=== PATIENT | male | born 1965 | race Caucasian/White ===

== ENCOUNTER 2017-04-24 15:21 | Inpatient (IN) ==
--- NOTE | 2017-04-24 17:07 | Emergency Department Note ---
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 He had been having trouble with palpation of the heart had a workup that was done. He had an echo done here yesterday. At the [facility] he went and had a Holter monitor put on and That on overnight last night. He turned it in this morning. When they read it they apparently saw ventricular tachycardia and frequent PVCs so they called him and told him to come back to the place. While there the plan was to admitted to the hospital on metoprolol. However labs came back showing an elevated troponin so they could not keep him there and had a transfer him here. Onset (ago): unknown Context: occurred during rest Associated symptoms: Reports: denies other symptoms Treatments prior to arrival: other (None) - Related Data Home Medications Medication Instructions Recorded Confirmed Cholecalciferol (D-3) [Vitamin D] 1,000 unit PO DAILY 04/24/17 04/24/17 Diclofenac Sodium [Voltaren] 50 mg PO TID PRN 04/24/17 04/24/17 Lisinopril [Zestril] 10 mg PO DAILY 04/24/17 04/24/17 Sildenafil Citrate [Viagra] 100 mg PO AD PRN 04/24/17 04/24/17 Allergies Allergy/AdvReac Type Severity Reaction Status Date / Time No Known Allergies Allergy Unverified 12/29/16 11:06 All systems ED: reviewed and negative except as stated. Constitutional: Denies: fever, chills Cardiovascular: Reports: palpitations. Denies: chest pain Respiratory: Denies: cough, dyspnea Gastrointestinal: Denies: abdominal pain, nausea, vomiting Musculoskeletal: Denies: back pain Integumentary: Denies: rash Past Medical History - Past Medical History Attestation: Yes The following information was validated with the patient. Source: patient, old records reviewed, nursing notes reviewed Medical history: Reports: hypertension Psychiatric history: Reports: no psych history - Social History Smoking Status: Current every day smoker Smokeless Tobacco Status: No Alcohol use: Reports: heavy Drug use: Reports: marijuana Physical Exam - General Limitations: no limitations General appearance: alert, in no apparent distress - Head Head exam: atraumatic, normocephalic - Eye Eye exam: Present: normal appearance, PERRL, EOMI - ENT ENT exam: normal exam, normal oropharynx, mucous membranes moist, normal external ear exam - Chest Chest inspection: Present: normal inspection, symmetric chest wall rise - Respiratory Respiratory exam: Absent: respiratory distress - Cardiovascular Cardiovascular exam: Present: regular rate, normal rhythm - Abdominal Exam Abdominal exam: Present: soft, Non-Tender - Extremities Exam Extremities exam: Present: normal inspection. Absent: pedal edema - Neurological Exam Neurological exam: Present: alert, oriented X3 - Psychiatric Psychiatric exam: Present: normal affect, normal mood - Skin Skin exam: Present: warm, dry. Absent: rash Course - Reevaluation(s) Reevaluation #1: Patient was sent to the emergency department for a Holter monitor that showed V. tach and frequent PVCs. The patient has been asymptomatic except for noting some palpitations. Here in the department he has been fine although on the monitor we did see and episode of ventricular bigeminy. At the current time he has got sinus rhythm with an occasional PAC. Patient states he has sleep apnea and thinks this may be the cause. The bigeminy did occur while he was sleeping. I called the family physician and discussed the case with her. There is some confusion as to who did the Holter monitor and what does it show so she felt the best thing to do is admit the patient to the hospital on metoprolol by mouth twice a day until these Holter findings can be sorted out. Time: 17:56 Reevaluation #2: Patient remains asymptomatic at this time. Current monitor shows sinus rhythm with an occasional PAC. Time: 18:16 - Consultations Consultation #1: Dr. Malloy, cardiology - I discussed the case with Dr. Malloy. We do not really know who called the patient to say that he had the V. tach and frequent PVCs. She could not find any evidence that her office had called. At this point in emergency Department we have seen the patient with trigger PVCs and occasionally ventricular bigeminy. She feels the safest thing to do is admit the patient until everything can be sorted out. She cannot even find the actual Holter monitor reading. She recommends metoprolol 25 mg now and and continue that twice a day and admission to the hospitalist. Time: 17:07 Consultation #2: Dr. Liz, hospitalist - I discussed the case with the hospitalist and let him know the patient's current status as well as the presentation and my conversation with the family physician. He has accepted the patient for admission. Time: 18:15 Vital Signs Temperature 98.3 F 04/24/17 15:49 Pulse Rate 69 04/24/17 15:49 Respiratory Rate 18 04/24/17 15:49 Blood Pressure 130/72 04/24/17 15:49 O2 Sat by Pulse Oximetry 96 04/24/17 15:49 Temperature 98.3 F 04/24/17 15:49 Pulse Rate 60 04/24/17 18:11 Respiratory Rate 18 04/24/17 18:11 Blood Pressure 138/84 04/24/17 18:11 O2 Sat by Pulse Oximetry 95 04/24/17 18:11 Oxygen Delivery Oxygen Delivery Room Air Arrhythmia/Palpitations - Medical Records Medical records reviewed: Yes I reviewed the patient's medical records. - Radiology Data Radiology results reviewed: Yes I reviewed the patient's radiology results. - EKG Data EKG attestation: Yes I reviewed and interpreted this EKG. EKG shows normal: sinus rhythm, axis, intervals, QRS complexes, ST-T waves Rate: normal Interpretation: no acute changes
[2017-04-24 18:26] LABS: Basophils # 0.1 K/mcL (0.0-0.2); Basophils % 0.7 %; Eosinophils # 0.1 K/mcL (0.0-0.6); Eosinophils % 1.9 %; Hematocrit 45.5 % (37.5-50.1); Hemoglobin 15.4 g/dL (12.9-16.9); Immature Granulocytes % 1.1 % (0-4); Lymphocytes # 1.9 K/mcL (0.6-4.6); Lymphocytes % 25.9 %; Mean Corpuscular HGB Conc 33.8 g/dL (31.6-35.5); Mean Corpuscular Hemoglobin 30.4 pg (28.0-33.3); Mean Corpuscular Volume 89.9 fL (83.0-100.0); Monocytes # 0.6 K/mcL (0.0-1.3); Monocytes % 8.4 %; Neutrophils # 4.6 K/mcL (1.6-8.9); Platelet Count 199 K/mcL (140-400); Red Blood Count 5.06 M/mcL (4.19-5.50); Red Cell Distribution Width 12.9 % (11.5-14.5)
[2017-04-24 18:32] LABS: Prothrombin Time 11.1 Seconds (9.4-12.1)
[2017-04-24 18:35] LABS: Activated Partial Thrombo Time 31.4 Seconds (26.0-36.0)
[2017-04-24 18:38] LABS: BUN/Creatinine Ratio 15 (6-26); Blood Urea Nitrogen 13 mg/dL (8-26); Calcium 8.9 mg/dL (8.6-10.8); Carbon Dioxide 25 mEq/L (19-29); Chloride 106 mEq/L (98-109); Glucose 99 mg/dL (70-99); Osmolality,Calculated 286 (280-300); Potassium 4.4 mEq/L (3.5-4.5); Sodium 138 mEq/L (136-145); eGFR For African Americans > 60 (> 60); eGFR For Non-African Americans > 60 (> 60)
[2017-04-24] MEDS ORDERED: *HR* HYDROcodone/Acet 5/325 mg TABLET PO PRN (18:56)
[2017-04-24] MEDS ORDERED: *HR* Morphine 2 MG/ML SYRINGE IVP PRN (18:56)
[2017-04-24] MEDS ORDERED: Naloxone 0.4 MG/ML INJ IVP PRN (18:56)
[2017-04-24] MEDS ORDERED: Acetaminophen 325 MG TABLET PO PRN (18:56)
--- NOTE | 2017-04-24 19:12 | Internal Med History&Physical ---
<Darius Mcdermott - Last Filed: 04/24/17 20:11> Date of Encounter: 04/24/17 Time of Encounter: 18:30 Assessment and Plan (1) Elevated troponin Current visit: Yes Status: Acute Patient presents with abnormal initial troponin level from the [facility] today. First troponin level in ED here is 0.03. Will trend troponins x2. Patient to be placed on continuous cardiac telemetry. Aspirin 81 mg daily added. Lipitor 40 mg daily added based on stat lipid panel results. Patient states he is not having chest pain. Will monitor patient for signs of tachycardia, chest pain, or elevated troponin. Patient is followed by Dr. Alarcon. 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 Patient to be placed on continuous cardiac telemetry. Will continue patient's HTN medication. (3) Hyperlipidemia Current visit: Yes Status: Acute Patient presents with hyperlipidemia based on stat lipid panel ordered today. Patient's triglycerides are 411, cholesterol is 172, HDL is 31, and cholesterol/ HDL ratio is 5.5. Will add Lipitor 40 mg daily. Qualifiers: Hyperlipidemia type: pure hypercholesterolemia Qualified Code(s): E78.00 - Pure hypercholesterolemia, unspecified; E78.0 - Pure hypercholesterolemia (4) SOB (shortness of breath) Current visit: Yes Status: Chronic Patient presents with shortness of breath associated with his current tobacco abuse. On examination Mr. Heard has wheezing in lower lobes bilaterally, more pronounced in the right lobes. DuoNebs Q4 ordered with continuous SpO2 monitoring. Patient's current SpO2 is 96% on RA. Will order O2 if patient shows signs of dyspnea. (5) Tobacco abuse Current visit: Yes Status: Chronic Patient presents with history of tobacco abuse. He reports that he currently smokes 1 1/2 packs per day. 21 mg nicotine patch ordered. (6) Hypertension Current visit: Yes Status: Chronic Patient presents with history of chronic hypertension. Will continue patient's lisinopril. Monitor patient and vital signs. Qualifiers: Hypertension type: essential hypertension Qualified Code(s): I10 - Essential (primary) hypertension (7) DVT prophylaxis Current visit: Yes Status: Acute Patient is to be placed on DVT prophylaxis due to admission status and current symptomatology. Heparin 5,000 units SQ Q8 ordered. Internal Medicine - H&P: HPI Chief complaint: Elevated troponin Admitted From: Emergency Dept Plans for Post Hospital Care: Home History of present illness: Mr. Heard is a 51 year old male who presents from the ED after being sent from the [facility] for abnormal Holter results that showed tachycardia and PVCs. When he presented to the [facility], they report that his troponin was elevated. Mr. Heard states that he has occasional heart flutters. He also reports that he had an echocardiogram done yesterday at the recommendation of Dr. Alarcon which showed normal LV systolic function and LVEF of 60%, mild concentric left ventricular hypertrophy, and normal right ventricular size and function. Patient reports he also had a nuclear pharm stress test done in December 2016. Patient reports no chest pain or SOB aside from his normal shortness of breath due to smoking 1 1/ 2 packs per day. Patient also states he was previously a diabetic but stopped taking his Metformin when he changed his diet and began exercising. He currently takes no hyperglycemic medications. He reports his only medical condition is hypertension for which he takes lisinopril. Patient is at high risk for cardiac event due to current report of heart flutter, abnormal Holter results showing tachycardia and PVCs, previous diabetes, current tobacco abuse, hypertension, hyperlipidemia, heavy alcohol use, and morbid obesity. He is to be placed as inpatient with trending troponins x2, continuous cardiac telemetry , stat lipid panel order, LFTs, A1C, and SpO2 monitoring. Patient will be monitored closely for new cardiac anomalies. DuoNebs Q4 ordered for SOB related to his smoking. Time spent with patient >40 minutes. Past Med Surg Social Fam HX - Past Medical History Source: patient Medical history: hypertension Psychiatric history: no psych history - Social History Smoking Status: Current every day smoker Packs per day: 1 1/2 PPD Smokeless Tobacco Status: No Alcohol use: heavy (Drinks bourbon 3-4 days per week in large amounts) Drug use: marijuana Occupational status: retired Current living situation: Home Activity Level: Independent ambulation, Very active Recent Out of Country Travel Within the Last 8 Weeks: No Exposure or Possible Exposure to Illness During Travel: No - Family History Father History Unknown: Yes Race: Family Member Ethnicity: Non- Mother Race: Family Member Ethnicity: Non- Living Status: Age at : 65 Cause of : MA Hx Family Cardiac Disorders: Yes (Stroke, HD, MA) Brother Race: Family Member Ethnicity: Non- Living Status: Still Living Hx Family Medical Disorders: No Internal Medicine - H&P: Meds Cholecalciferol (D-3) [Vitamin D] 1,000 unit PO DAILY 04/24/17 [History] Diclofenac Sodium [Voltaren] 50 mg PO TID PRN 04/24/17 [History] Lisinopril [Zestril] 10 mg PO DAILY 04/24/17 [History] Sildenafil Citrate [Viagra] 100 mg PO AD PRN 04/24/17 [History] Allergies No Known Allergies Allergy (Unverified 12/29/16 11:06) All Systems PM: A 10-system review of systems was performed and is negative for pertinent findings except as documented above in the HPI. - Constitutional Constitutional: no chills, no fever(s), no night sweats - EENT Eyes: no change in vision, no discharge, no pain, no photophobia Ears: no ear discharge, no ear pain, no tinnitus Nose, mouth and throat: no dysphagia, no nasal discharge, no neck pain, no sore throat - Breasts Breasts: as per HPI - Cardiovascular Cardiovascular ROS IM: as per HPI, irregular heart rhythm, no chest pain, no diaphoresis, no dyspnea, no lightheadedness, no palpitations, no syncope - Respiratory Respiratory: as per HPI, dyspnea - Gastrointestinal Gastrointestinal: no abdominal pain, no diarrhea, no hematemesis, no hematochezia, no melena, no nausea, no vomiting - Genitourinary Genitourinary ROS male: as per HPI - Musculoskeletal Musculoskeletal ROS IM: no numbness, no tingling - Integumentary Integumentary IM: no rash, no unusual bruising - Neurological Neurological ROS: no confusion, no convulsions, no focal weakness, no numbness, no tingling, no tremor(s) - Psychiatric Psychiatric: as per HPI - Endocrine Endocrine IM: as per HPI - Hematologic/Lymphatic Hematologic/Lymphatic: no easy bruising - Allergic/Immunologic Allergic/Immunologic: as per HPI - Constitutional Vitals: Temp Pulse Resp BP Pulse Ox 98.3 F 60 18 138/84 95 04/24/17 15:49 04/24/17 18:11 04/24/17 18:11 04/24/17 18:11 04/24/17 18:11 General appearance: Present: cooperative, A&O X 3, morbidly obese, pleasant, no acute distress, answers questions appropriately - Head Head exam: Present: atraumatic, normocephalic - Eye Eye exam: Present: PERRL, conjuntiva pink, sclera anicteric Pupils: Present: PERRL - ENT ENT exam: Present: normal exam, normal external ear exam - Neck Neck exam general surgery: Present: normal inspection, supple, trachea midline. Absent: lymphadenopathy - Respiratory Respiratory exam: Present: wheezes (Bilaterally in lower lobes, more prominent on right) - Cardiovascular Cardiovascular exam: Present: RRR, +S1, +S2. Absent: diastolic murmur, gallop, rubs, systolic murmur - GI/Abdominal GI/Abdominal exam: Present: normal bowel sounds, soft, no peritoneal signs. Absent: distended, tenderness - Rectal Rectal exam: Present: deferred - Additional comments: exam deferred. - Extremities Exam Extremities exam: Present: warm, radial pulses palpable and symetrical. Absent : calf tenderness, cyanotic, pedal edema - Back Exam Back exam: Present: normal inspection - Neurological Exam Neurological exam: Present: CN II-XII intact, oriented X3, no focal deficits. Absent: pronater drift, facial droop, speech deficit - Psychiatric Psychiatric exam: Present: normal affect, normal mood - Skin Skin exam: Present: dry, intact Internal Med - H&P Results - Labs CBC & Chem 7: 04/24/17 18:19 04/24/17 18:19 - EKG Data EKG shows normal: sinus rhythm - EKG Data Prior EKG available for review: no EKG comments: 04/24/17 19:35 EKG dated 04/24/17 shows sinus rhythm with low QRS voltage in precordial leads with non-specific T-wave abnormality. - Diagnostic Studies Chest x-ray Additional comments: Impressions Chest X-Ray 04/24/17 17:51 IMPRESSION: No acute process. D/ / Bear Montalvo MD / Bear Montalvo MD Interpreting Provider: Bear Montalvo MD <Tab Palma - Last Filed: 04/25/17 03:53> Date of Encounter: 04/24/17 Assessment and Plan (1) BASILIO on CPAP Current visit: Yes Status: Chronic will do CPAP QHS, his BASILIO may be driving his arrhythmias Internal Medicine - H&P: HPI History of present illness: Mr. Heard is a 51 year old male All Systems PM: A 10-system review of systems was performed and is negative for pertinent findings except as documented above in the HPI. - Constitutional Vitals: Temp Pulse Resp BP Pulse Ox 98.5 F 60 13 136/77 98 04/25/17 00:18 04/25/17 00:18 04/25/17 00:18 04/25/17 00:18 04/25/17 00:18 Internal Med - H&P Results - Labs CBC & Chem 7: 04/24/17 18:19 04/24/17 18:19 Labs: Cardiac Enzymes 04/25/17 Range/Units 00:43 Troponin I 0.03 (0-0.03) ng/mL - Diagnostic Studies Chest x-ray Status: image reviewed by me - Attending Attestation I personally interviewed and examined this patient and my medical decision- making was reviewed with the Advanced Practice Nurse. I agree with the documented findings, disposition and treatment plan as described. We appreciate cardiology weigh in, they recommended metoprolol when called by the ER earlier. Tab Palma MD, MPH Hospitalist
[2017-04-24 19:16] LABS: Hemoglobin A1C 5.8 %
[2017-04-24 19:26] LABS: Alanine Aminotransferase 31 Units/L (0-55); Albumin 3.6 g/dL (3.5-5.0); Albumin/Globulin Ratio 1.1 (1.1-2.2); Alkaline Phosphatase 68 Units/L (38-126); Aspartate Amino Transferase 22 Units/L (5-34); Bilirubin,Direct 0.1 mg/dL (0.0-0.5); Bilirubin,Indirect 0.2 mg/dL (0.0-1.2); Bilirubin,Total 0.3 mg/dL (0.2-1.2); Chol/HDL Ratio 5.5 (0-4.9); Cholesterol 172 mg/dL (< 200); Globulin 3.2 g/dL (2.4-3.5); HDL Cholesterol 31 mg/dL (40-59); Total Protein 6.8 g/dL (6.0-8.3); Triglycerides 411 mg/dL (< 150)
[2017-04-24] MEDS: Aspirin Enteric Coated 81 MG Tablet PO SCH (20:48)
[2017-04-24] MEDS: Nicotine 21 MG PATCH.TD24 TD SCH (20:49)
[2017-04-24] MEDS: *HR* Heparin 5,000 UNIT/ML VIAL SQ SCH (20:49)
[2017-04-24] MEDS: Ipratropium/Albuterol Neb 3 ML IH SCH ×2 (21:04→23:27)
[2017-04-25] MEDS: Ipratropium/Albuterol Neb 3 ML IH SCH (04:00)
[2017-04-25] MEDS: *HR* Heparin 5,000 UNIT/ML VIAL SQ SCH (05:21)
[2017-04-25 06:54] VITALS: BP 153/86
[2017-04-25] MEDS ORDERED: Ipratropium/Albuterol Neb 3 ML IH PRN (07:27)
[2017-04-25] MEDS: Nicotine 21 MG PATCH.TD24 TD SCH (08:25)
[2017-04-25] MEDS: Aspirin Enteric Coated 81 MG Tablet PO SCH (08:29)
[2017-04-25] MEDS ORDERED: Cholecalciferol (D-3) 1,000 UNIT TABLET PO SCH (09:00)
[2017-04-25] MEDS ORDERED: Pantoprazole 40 MG VIAL IVP SCH (09:00)
--- NOTE | 2017-04-25 09:30 | Cardiology Consult Note ---
<Marcella Tracy Lukas - Last Filed: 04/25/17 10:00> Date of Encounter: 04/25/17 Time of Encounter: 07:20 Assessment and Plan (1) PVCs (premature ventricular contractions) Current Visit: Yes Status: Acute Reported NSVT per HM completed at the CT; unfortunately, upon transfer report /strips were not sent with patient. Unable to obtain until Thursday. Troponin negative x2. Patient is asymptomatic. No ischemic ECG changes. Started on betablocker in ED. Telemetry review: avg HR=60, episode of bigeminy noted, no couplets or NSVT noted. Recent nuclear stress (December 2016) negative for ischemia or infarct. TTE on 04/23/17: LVEF 60%, mild cLVH, no significant valvular, normal wall motion. Continue betablocker. Patient is asymptomatic. No further inpatient recommendations, will sign-off. Follow-up with Cardiology next week to review HM. Instructed patient to go to ED with new or worsening symptoms. Anticipate sign-off once seen by Dr. Malloy. (2) BASILIO on CPAP Current Visit: Yes Status: Chronic Reports compliance. Discussion w patient/family: The assessment and plan as outlined above was discussed with the patient and/or family members who expressed understanding and agreement. All questions were answered. Thank you for involving us in the care of your patient. Please call with any questions. The patient will be discussed and reviewed with Dr. Malloy; changes to be made accordingly. History of Present Illness Consult date: 04/25/17 Requesting physician: Osvaldo Quintanilla Consult reason: PVCs, abnormal holter Chief complaint: Abnormal holter History of present illness: Mr. Heard is a 51 year old male with PMHx significant for ETOH abuse, tobacco use, BASILIO, and DMII who presented to [facility] [place] due to concerns of abnormal holter monitor. Unfortunately, the CT did not send copy of report with patient and will not be able to obtain report until Thursday. Patient states he wore the monitor for x2 days and turned the monitor in yesterday; he was then contacted and told to go to [facility] due to concerns of "ventricular ectopy." He has a known hx of PVCs and HM was ordered by Dr. Alarcon. He states symptoms ( fatigue, dyspnea) have not changed over the past year. He denies chest pain or discomfort, dizziness, lightheadedness, syncope, or pre-syncopal symptoms. He is mostly compliant with BiPap, however does not utilize when he naps during the day. Admits to drinking fifth of bourbon every 3-4 days and smokes 0.5-1 ppd. Prior CV testing: Nuclear stress test 12/29/2016: Chest discomfort reported during the study. Frequent PVCs throughout stress and most of recovery, frequent ventricular bigeminy. No ischemic ST or T-wave changes. Perfusion imaging negative for ischemia or prior infarct. TTE 04/23/17: LVEF 60%, mild cLVH, no significant valvular dysfunction, normal wall motion Past Med Surg Social Fam HX - Past Medical History Attestation: Yes The following information was validated with the patient. Source: patient Medical history: diabetes, other (BASILIO) Psychiatric history: no psych history - Past Surgical History Surgical History: non-contributory - Social History Smoking Status: Current every day smoker Packs per day: 0.5-1 ppd Smokeless Tobacco Status: No Alcohol use: heavy (Drinks bourbon 3-4 days per week in large amounts) Drug use: marijuana - Family History Father History Unknown: Yes Race: Family Member Ethnicity: Non- Mother Race: Family Member Ethnicity: Non- Living Status: Age at : 65 Cause of : PR Hx Family Cardiac Disorders: Yes (Stroke, HD, PR) Brother Race: Family Member Ethnicity: Non- Living Status: Still Living Hx Family Medical Disorders: No Medications and Allergies Cholecalciferol (D-3) [Vitamin D] 1,000 unit PO DAILY 04/24/17 [History] Diclofenac Sodium [Voltaren] 50 mg PO TID PRN 04/24/17 [History] Lisinopril [Zestril] 10 mg PO DAILY 04/24/17 [History] Sildenafil Citrate [Viagra] 100 mg PO AD PRN 04/24/17 [History] Metoprolol [Lopressor] 12.5 mg PO BID #30 tablet 04/25/17 [Rx] Allergies No Known Allergies Allergy (Unverified 12/29/16 11:06) All Systems Review: A 10-system review of systems was performed and is negative for pertinent findings except as documented above in the HPI. - Cardiovascular Cardiovascular: as per HPI Physical Examination Vital Signs, Last 4 Hours Temp Pulse Resp BP Pulse Ox 04/25/17 06:48 96.6 F L 51 18 153/86 98 General: Conversant, Other (obese) HEENT: Atraumatic, Normocephaly Cardiac: Reg Rate and Rhythm, Normal S1 and S2 Lungs: Normal Breath Sounds Neuro: Alert and responsive Abdomen: Soft Skin: No rashes noted on visualized skin Musculoskeletal: No Chest Wall Tenderness Extremities: No Edema, Normal Pulses Results 04/24/17 18:19 04/24/17 18:19 Lab Results 04/25/17 04/25/17 00:43 06:33 Troponin I 0.03 0.01 Active Medications Acetaminophen (Tylenol) 650 mg PO Q6HR PRN PRN Reason: Mild Pain (1-3) Stop: 10/24/17 18:57 Hydrocodone Bitart/Acetaminophen (Moss 5-325 Mg) 1 tab PO Q4HR PRN PRN Reason: Moderate Pain (4-6) Stop: 10/24/17 18:57 Albuterol/Ipratropium (Duoneb) 3 ml IH [id number] PRN; Protocol PRN Reason: Wheezing Stop: 10/24/17 20:01 Aspirin (Aspirin Ec) 81 mg PO DAILY [facility] Stop: 10/24/17 20:16 Last Admin: 04/25/17 08:29 Dose: 81 mg Diclofenac Sodium (Voltaren) 50 mg PO TID PRN; Protocol PRN Reason: Pain Stop: 10/24/17 19:05 Heparin Sodium (Porcine) (Heparin) 5,000 unit SQ Q8HCO [facility] Stop: 10/24/17 22:01 Last Admin: 04/25/17 05:21 Dose: 5,000 unit Lisinopril (Zestril) 10 mg PO DAILY SUDHA PRN Reason: Protocol Stop: 10/25/17 09:01 Last Admin: 04/25/17 08:29 Dose: 10 mg Metoprolol Tartrate (Lopressor) 12.5 mg PO BID [facility] Stop: 10/25/17 09:31 Morphine Sulfate (Morphine Sulfate) 2 mg IVP Q4HR PRN PRN Reason: Severe Pain (7-10) Stop: 10/24/17 18:57 Naloxone HCl (Narcan) 0.4 mg IVP Q2MIN PRN PRN Reason: Opioid Reversal Stop: 10/24/17 18:57 Nicotine (Nicoderm) 21 mg TD DAILY SUDHA PRN Reason: Protocol Stop: 10/24/17 20:16 Last Admin: 04/25/17 08:25 Dose: Not Given Pantoprazole Sodium (Protonix) 40 mg IVP DAILY SUDHA Stop: 10/25/17 09:01 Last Admin: 04/25/17 08:31 Dose: Not Given Simvastatin (Zocor) 40 mg PO HS SUDHA Stop: 10/24/17 21:01 Last Admin: 04/24/17 20:48 Dose: 40 mg Vitamin D (Vitamin D) 1,000 unit PO DAILY SUDHA Stop: 10/25/17 09:01 Last Admin: 04/25/17 08:29 Dose: 1,000 unit - Imaging and Cardiology Stress Test: report reviewed Echo: report reviewed Other Results: 12 hour tele: avg HR=60. Episode of bigeminy, no NSVT noted. 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 All questions were answered. Thank you for involving us in the care of your patient. Please call with any questions. History of Present Illness History of present illness: Mr. Heard is a 51 year old male All Systems Review: A 10-system review of systems was performed and is negative for pertinent findings except as documented above in the HPI. Results 04/24/17 18:19 04/24/17 18:19 Lab Results 04/25/17 04/25/17 00:43 06:33 Troponin I 0.03 0.01 - Attending Attestation I examined this patient and my medical decision-making was reviewed with the EDUCATION TECHNICIAN/PA/Advanced Practice Nurse/Resident Physician. I agree with the documented findings, disposition and treatment plan. Mr. Heard presents from the CT. He was seen in February by [facility] and had an echo and holter ordered. These are being completed by the CT. [facility] the [facility] and sent patient over for evaluation. Overnight, the average HR has been 60 and there's been no significant ectopy on telemetry. Recent stress testing was negative for ischemia and EF normal. Beta adri has been started. Patient is asymptomatic and would like to go home. Recommend outpatient cardiology follow up. We will sign off. Please call with questions.
--- NOTE | 2017-04-25 09:43 | Discharge Summary ---
Date of Encounter: 04/25/17 Time of Encounter: 09:42 - Discharge Diagnosis (1) Ventricular tachycardia seen on cardiac catheterization technologist Priority: Primary Status: Acute (2) PVCs (premature ventricular contractions) Priority: Secondary Status: Acute (3) Elevated troponin Priority: Secondary Status: Ruled-out (4) Hyperlipidemia Priority: Secondary Status: Acute Qualifiers: Hyperlipidemia type: pure hypercholesterolemia Qualified Code(s): E78.00 - Pure hypercholesterolemia, unspecified; E78.0 - Pure hypercholesterolemia (5) Hypertension Priority: Secondary Status: Chronic Qualifiers: Hypertension type: essential hypertension Qualified Code(s): I10 - Essential (primary) hypertension (6) SOB (shortness of breath) Priority: Secondary Status: Chronic (7) Tobacco abuse Priority: Secondary Status: Chronic - Discharge Medications Prescriptions: Metoprolol [Lopressor] 12.5 mg PO BID #30 tablet Home Medications: Cholecalciferol (D-3) [Vitamin D] 1,000 unit PO DAILY 04/24/17 [History] Diclofenac Sodium [Voltaren] 50 mg PO TID PRN 04/24/17 [History] Lisinopril [Zestril] 10 mg PO DAILY 04/24/17 [History] Sildenafil Citrate [Viagra] 100 mg PO AD PRN 04/24/17 [History] Metoprolol [Lopressor] 12.5 mg PO BID #30 tablet 04/25/17 [Rx] Allergies/Adverse Reactions: Allergies No Known Allergies Allergy (Unverified 12/29/16 11:06) Date of admission: 04/24/17 19:12 [facility] care physician: [facility] Consults: 04/24/17 22:21 Consult to Cardiology [CONS] Routine Comment: Consulting Provider: Cardiology Kristina Reason for Consult: Abnormal Holter results showing ventricular tachycardia and PVCs. 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 Heard is a 51 year old male patient with a history of hypertension who was being evaluated with a Holter monitor was advised to come to the ER after he was noted to have frequent PVCs and possible nonsustained V. tach. He was evaluated with telemetry here and patient has had occasional PVCs. But no episodes of V. tach. Cardiology was consulted. They recommended placing the patient on a beta adri and having him follow up with cardiology as outpatient. As such patient will be discharged home today and he will follow- up with cardiology for further management. Patient's troponins were trended and they were negative. - Time Spent with Patient Total time spent providing and/or coordinating discharge services: Less than 30 minutes (20 min) - Constitutional Vitals: Temp Pulse Resp BP Pulse Ox 96.6 F L 51 18 153/86 98 04/25/17 06:48 04/25/17 06:48 04/25/17 06:48 04/25/17 06:48 04/25/17 06:48 General appearance: Present: cooperative, A&O X 3, morbidly obese, pleasant, no acute distress, answers questions appropriately - Neck Neck exam general surgery: Present: supple, trachea midline. Absent: lymphadenopathy - Respiratory Respiratory exam: Present: CTAB. Absent: accessory muscle use, rales, rhonchi, wheezes - Cardiovascular Cardiovascular exam: Present: RRR, +S1, +S2. Absent: diastolic murmur, gallop, rubs, systolic murmur - GI/Abdominal GI/Abdominal exam: Present: normal bowel sounds, soft, no peritoneal signs. Absent: distended, tenderness
== END 2017-04-25 12:15 | disposition home or self-care (01) | DRG 309 ==
LOC: EMEROO 15:21 → 2NENU 15:21
PROVIDERS: ADMIT Internal Medicine; ATTEND Internal Medicine